=== PATIENT | female | born 1940 | race Caucasian/White ===

== ENCOUNTER 2019-05-19 13:08 | Inpatient (IN) | payer MEDICARE, BC ==
[~2019-05-19] VITALS: Ht 162.6 cm; Wt 87.0 kg
[~2019-05-19 13:08] MED LIST: ASPI-1009 PO; CARV-50 PO; ESOM40CA PO; FENO135C3 PO; LEVO125T PO; LOSA25TA41 PO; METF500T PO; METH500T6 PO; ROPI1TAB17 PO; ROPI2TAB4 PO; TRAM50TA2 PO
[2019-05-19 13:47] LABS: BASOPHILS % (AUTO) 0.6 % (0-1); EOSINOPHILS # (AUTO) 0.1 X10'3 (0-0.9); EOSINOPHILS % (AUTO) 1.6 % (0-6); HEMATOCRIT 31.6 % (35.0-45.0); HEMOGLOBIN 10.3 g/dl (12.0-16.0); LYMPHOCYTES # (AUTO) 1.5 X10'3 (1.1-4.8); MEAN CORPUSCULAR HEMOGLOBIN 27.9 PG (27.0-31.0); MEAN CORPUSCULAR HGB CONC 32.7 g/dL (33.0-36.5); MEAN CORPUSCULAR VOLUME 85.6 FL (78-98); MEAN PLATELET VOLUME 8.1 FL (7.4-10.4); MONOCYTES # (AUTO) 0.4 X10'3 (0-0.9); MONOCYTES % (AUTO) 6.6 % (2-12); NEUTROPHILS # (AUTO) 4.5 X10'3 (1.8-7.7); NEUTROPHILS % (AUTO) 68.2 % (42-75); PLATELET COUNT 296 X10'3 (140-440); RED BLOOD COUNT 3.69 X10'6 (4.20-5.60); WHITE BLOOD COUNT 6.5 X10'3 (4.5-11.0)
[2019-05-19] MEDS ORDERED: dexamethasone sod phosphate 10mg/ml inj IV STA (13:54)
[2019-05-19] MEDS ORDERED: ipratropium/albuterol 3ml nebule NEB ONE (13:55)
[2019-05-19 14:03] LABS: ALANINE AMINOTRANSFERASE 22 U/L (12-78); ALBUMIN 3.5 G/DL (3.4-5.0); ALKALINE PHOSPHATASE 36 IU/L (46-116); ANION GAP 8 (8-16); ASPARTATE AMINO TRANSFERASE 18 U/L (10-37); BILIRUBIN,TOTAL 0.7 MG/DL (0.1-1.0); BLOOD UREA NITROGEN 20 MG/DL (7-18); BUN/CREATININE RATIO 19.8 (6.6-38.0); CALCIUM 9.3 MG/DL (8.5-10.1); CHLORIDE 103 MMOL/L (99-107); CREATININE 1.01 MG/DL (0.40-0.90); GLUCOSE 197 MG/DL (70-104); POTASSIUM 3.8 MMOL/L (3.5-5.1); SODIUM 138 MMOL/L (135-145); TOTAL CARBON DIOXIDE 26.6 MMOL/L (24-32); TOTAL PROTEIN 7.1 G/DL (6.4-8.2); eGFR 53 ML/MIN
[2019-05-19 14:10] LABS: PARTIAL THROMBOPLASTIN TIME 31 SECONDS (22-32)
[2019-05-19] MEDS ORDERED: SPIR25TA5 PO (14:50)
[2019-05-19] MEDS ORDERED: MULT1TAB74 PO (14:50)
[2019-05-19] MEDS ORDERED: CHOL200026 PO (14:50)
[2019-05-19] MEDS ORDERED: BLOO1STR (14:50)
[2019-05-19] MEDS ORDERED: POTA20TA19 PO (14:50)
[2019-05-19] MEDS ORDERED: CINN500C15 PO (14:50)
[2019-05-19] MEDS ORDERED: ASCO500C15 PO (14:50)
[2019-05-19] MEDS ORDERED: OMEG-145 PO (14:50)
[2019-05-19] MEDS ORDERED: INSU100V9 SQ (14:50)
[2019-05-19] MEDS ORDERED: MIRA50TA PO (14:50)
[2019-05-19] MEDS ORDERED: LINA5TAB4 PO (14:50)
[2019-05-19] MEDS ORDERED: CRAN200C PO (14:50)
[2019-05-19] MEDS ORDERED: APIX5TAB3 PO (14:50)
[2019-05-19] MEDS ORDERED: acetaminophen 325mg tablet PO PRN (15:40)
[2019-05-19] MEDS ORDERED: magnesium hydroxide 30ml (MOM) UD suspension PO PRN (15:40)
[2019-05-19] MEDS ORDERED: dextrose ORAL solution 15 GM/59 ML bottle PO PRN ×2 (15:40)
[2019-05-19] MEDS ORDERED: glucagon, human recombinant 1mg kit SUBCUT PRN (15:40)
[2019-05-19] MEDS ORDERED: dextrose 50%-water 50ml dispensing syringe IV PRN ×2 (15:40)
[2019-05-19] MEDS ORDERED: MESSAGE TO PHARMACY PO ONE (15:40)
[2019-05-19] MEDS ORDERED: mag hydrox/Alum hydrox/simeth 30ml oral suspension PO PRN (15:40)
[2019-05-19] MEDS ORDERED: ondansetron/PF 4mg/2ml inj IV PRN (15:40)
[2019-05-19] MEDS ORDERED: morphine 2 MG/ML inj. syringe IV PRN ×2 (15:40)
[2019-05-19] MEDS ORDERED: HYDROcodone/acetaminophen 5mg/325mg tablet PO PRN (15:40)
[2019-05-19 16:01] LABS: HEMOGLOBIN A1C 8.4 % (4.5-6.2)
[2019-05-19] MEDS: furosemide 20 MG/2 ML vial IV SCH ×2 (16:34→21:55)
--- NOTE | 2019-05-19 20:10 | NUR ---
REPORT REC'D FROM MALIK IGLESIAS. IN ED. PT ARRIVED TO FLOOR AND PIVOT TRANSFERRED SELF. INCONTINENT CHANGED AND SET UP WITH [employer] EX[employer]HE[employer]. ALL MEDS ADMINISTERED ORDERED. BG CHECK 179 AT HS. MEAL PROVIDED. PT IS ON O2 2L/NC SAT 97%. ADMIT RECORDED AND SKIN CHECK PERFORMED.
[2019-05-19 20:20] VITALS: BP_SYST 179
[2019-05-19] MEDS: ROPINIRole 1mg tablet PO SCH (21:00)
[2019-05-19] MEDS: insulin glargine (Lantus) pen - multi-dose SQ SCH (21:00)
[2019-05-19] MEDS: mirabegron 25mg ER tablet PO SCH (21:50)
[2019-05-19] MEDS: OMEGA-3/DHA/EPA/FISH OIL 1 EACH CAPSULE.DR PO SCH (21:50)
[2019-05-19] MEDS: spironolactone 25 MG tablet PO SCH (21:51)
[2019-05-19] MEDS: traMADol 50MG tablet PO SCH (21:54)
[2019-05-19] MEDS: apixaban 5mg tablet PO SCH (21:54)
[2019-05-19] MEDS: carVEDilol 12.5mg tablet PO SCH (21:55)
[2019-05-19 22:00] VITALS: BP 168/78
[2019-05-19] MEDS ORDERED: ROPINIRole 0.25mg tablet PO ONE (23:10)
--- NOTE | 2019-05-19 23:52 | NUR ---
DAUGHTER BRYON REEVES CALLED TO CHECK ON MOTHER. RN WAS GIVEN PERMISSION TO DISCUSS CASE. PT IS ADMITTED FOR ACUTE DECOMPENSATED CHF, REC'ING TESSAWOLF, WILL OBTAIN ECHO IN AM, IS BEING MONITORED FOR HYPER/HYPOGLYCEMIA. ON 2.5%O2/NC. SHE WILL CALL IN THE MORNING AND GET UPDATE. DAYNA FROM [facility] ALSO CALLED TO REC' UPDATE AND ADMITTING DX.
[2019-05-20 02:00] VITALS: BP 142/70
[2019-05-20] MEDS: traMADol 50MG tablet PO SCH ×4 (03:03→20:37)
[2019-05-20 06:00] VITALS: BP 138/73
--- NOTE | 2019-05-20 06:00 | NUR ---
Patient in room MED 309. I have received report from MALIK Vernon and had the opportunity to ask questions and assume patient care.
[2019-05-20 06:13] LABS: ALBUMIN 3.3 G/DL (3.4-5.0); ANION GAP 8 (8-16); BLOOD UREA NITROGEN 17 MG/DL (7-18); BUN/CREATININE RATIO 18.1 (6.6-38.0); CALCIUM 8.9 MG/DL (8.5-10.1); CHLORIDE 100 MMOL/L (99-107); CREATININE 0.94 MG/DL (0.40-0.90); GLUCOSE 165 MG/DL (70-104); SODIUM 140 MMOL/L (135-145); TOTAL CARBON DIOXIDE 32.3 MMOL/L (24-32); eGFR 58 ML/MIN
[2019-05-20 06:16] LABS: BASOPHILS % (AUTO) 0.1 % (0-1); EOSINOPHILS % (AUTO) 0.1 % (0-6); HEMATOCRIT 30.9 % (35.0-45.0); HEMOGLOBIN 10.4 g/dl (12.0-16.0); LYMPHOCYTES # (AUTO) 1.2 X10'3 (1.1-4.8); LYMPHOCYTES % (AUTO) 17.2 % (21-51); MEAN CORPUSCULAR HEMOGLOBIN 28.5 PG (27.0-31.0); MEAN CORPUSCULAR HGB CONC 33.6 g/dL (33.0-36.5); MEAN CORPUSCULAR VOLUME 84.7 FL (78-98); MEAN PLATELET VOLUME 7.9 FL (7.4-10.4); MONOCYTES # (AUTO) 0.4 X10'3 (0-0.9); MONOCYTES % (AUTO) 6.2 % (2-12); NEUTROPHILS # (AUTO) 5.4 X10'3 (1.8-7.7); NEUTROPHILS % (AUTO) 76.4 % (42-75); PLATELET COUNT 304 X10'3 (140-440); RED BLOOD COUNT 3.65 X10'6 (4.20-5.60); RED CELL DISTRIBUTION WIDTH 17.3 % (11.5-14.5); WHITE BLOOD COUNT 7.1 X10'3 (4.5-11.0)
[2019-05-20 06:27] LABS: POTASSIUM 2.9 MMOL/L (3.5-5.1)
--- NOTE | 2019-05-20 06:34 | NUR ---
REPORT GIVEN TO MALIK ANDERSON.
--- NOTE | 2019-05-20 06:43 | NUR ---
PAGER ID: [phone] MESSAGE: RM [id number] Lazaro Mayfield Potassium 2.9 this AM. Will replace per protocol. Zeynep ACCE [id number]
[2019-05-20] MEDS: pantoprazole 40mg Tablet.DR PO SCH (07:30)
[2019-05-20] MEDS ORDERED: non-formulary drug (Cinnamon Bark (Cinnamon) 2 CAP) PO SCH (08:00)
[2019-05-20] MEDS ORDERED: potassium Cl 20 mEq SR tablet PO SCH (08:00)
[2019-05-20] MEDS ORDERED: CRANBERRY EXTRACT PO SCH (08:00)
[2019-05-20] MEDS: multivitamins, therapeutics tablet PO SCH (08:57)
[2019-05-20] MEDS: apixaban 5mg tablet PO SCH (08:57)
[2019-05-20] MEDS: carVEDilol 12.5mg tablet PO SCH ×2 (08:58→20:39)
[2019-05-20] MEDS: fenofibrate 145mg tablet PO SCH (08:58)
[2019-05-20] MEDS: levoTHYROXINE 125mcg tablet PO SCH (08:58)
[2019-05-20] MEDS: aspirin 81mg tablet.DR PO SCH (08:58)
[2019-05-20] MEDS: vitamin D (cholecalciferol) 1,000 unit tablet PO SCH (08:59)
[2019-05-20] MEDS: furosemide 20 MG/2 ML vial IV SCH ×2 (08:59→20:44)
[2019-05-20] MEDS: OMEGA-3/DHA/EPA/FISH OIL 1 EACH CAPSULE.DR PO SCH ×2 (08:59→20:34)
[2019-05-20] MEDS: spironolactone 25 MG tablet PO SCH ×2 (08:59→20:37)
[2019-05-20] MEDS: losartan 25mg tablet PO SCH (08:59)
[2019-05-20] MEDS: ascorbic acid 500mg tablet PO SCH (08:59)
[2019-05-20] MEDS: enoxaparin 40mg/0.4ml syringe SUBCUT SCH (09:00)
--- NOTE | 2019-05-20 09:17 | NUR ---
PAGER ID: [phone] MESSAGE: RM 309 Lazaro Mayfield Please call Zeynep on ACCE regarding potassium orders. ext [phone]
[2019-05-20] MEDS ORDERED: magnesium 2GM in 50ml NS 50 ML IV PRN (09:30)
[2019-05-20] MEDS ORDERED: potassium CL 10mEq/100ml bag 100 ML IV PRN (09:30)
[2019-05-20] MEDS: K and/or MAG REPLACEMENT MC SCH ×2 (09:30→20:00)
[2019-05-20] MEDS ORDERED: potassium Cl 20 mEq SR tablet PO PRN (09:30)
[2019-05-20] MEDS ORDERED: magnesium Cl slow-release 64mg tablet PO PRN (09:30)
[2019-05-20] MEDS ORDERED: magnesium 4gm in 100ml NS 100 ML IV PRN (09:30)
[2019-05-20 10:04] LABS: MAGNESIUM 1.2 MG/DL (1.5-2.4)
[2019-05-20] MEDS: potassium Cl 20 mEq SR tablet PO PRN ×3 (10:25→17:42)
[2019-05-20 11:00] VITALS: BP 129/68
--- NOTE | 2019-05-20 14:53 | NUR ---
DM Consult: Pt hx T2DM A1C 8.4. Pt seen by RD for written/verbal DM ed w/ RD contact information provided. Pt reports lives at [place] with SO and sometimes meals are not DM-friendly. Pt also reports she and SO are both more conscious of DM and have started on medications w/ meals as well as checking GLU prior to meals. RD encouraged pt to contact RD if further questions/concerns. Addendum: 05/20/19 at [address] Amended: Links added.
[2019-05-20 15:00] VITALS: BP 130/70
[2019-05-20 18:00] VITALS: BP 132/85
--- NOTE | 2019-05-20 18:00 | NUR ---
Patient in room MED 309. I have received report from MALIK Adhikari and had the opportunity to ask questions and assume patient care.
[2019-05-20] MEDS: insulin Lispro (HumaLOG) vial - multi-dose SQ SCH (18:10)
--- NOTE | 2019-05-20 18:27 | NUR ---
Problems reprioritized. Patient report given, questions answered & plan of care reviewed with MALIK Marie.
--- NOTE | 2019-05-20 19:45 | NUR ---
Dr. Rider called to inform me of the plan to change the patients pace maker during this stay. orders were given to DC patients Eliquis and start patient on 40mg of Lovenox.
[2019-05-20] MEDS ORDERED: enoxaparin 40mg/0.4ml syringe SUBCUT SCH (20:00)
[2019-05-20] MEDS: mirabegron 25mg ER tablet PO SCH (20:39)
[2019-05-20] MEDS: ROPINIRole 1mg tablet PO SCH (20:40)
--- NOTE | 2019-05-20 20:45 | NUR ---
Dr. Rider at patients bedside to talk to her about changing her pacemaker. Orders were given to stop all anticoags. Dr will be back in AM to discuss date and time of procedure.
[2019-05-20] MEDS: insulin glargine (Lantus) pen - multi-dose SQ SCH (20:58)
[2019-05-20 22:00] VITALS: BP 106/67
[2019-05-21] VITALS (12 sets, daily range): BP systolic 118–175; BP diastolic 58–84
[2019-05-21] MEDS: traMADol 50MG tablet PO SCH ×4 (03:11→21:00)
[2019-05-21 03:52] LABS: BASOPHILS # (AUTO) 0.1 X10'3 (0-0.2); EOSINOPHILS # (AUTO) 0.4 X10'3 (0-0.9); EOSINOPHILS % (AUTO) 5.2 % (0-6); HEMATOCRIT 31.5 % (35.0-45.0); HEMOGLOBIN 10.5 g/dl (12.0-16.0); LYMPHOCYTES % (AUTO) 39.3 % (21-51); MEAN CORPUSCULAR HEMOGLOBIN 28.4 PG (27.0-31.0); MEAN CORPUSCULAR HGB CONC 33.3 g/dL (33.0-36.5); MEAN CORPUSCULAR VOLUME 85.2 FL (78-98); MEAN PLATELET VOLUME 8.2 FL (7.4-10.4); MONOCYTES # (AUTO) 0.6 X10'3 (0-0.9); MONOCYTES % (AUTO) 8.1 % (2-12); NEUTROPHILS # (AUTO) 3.5 X10'3 (1.8-7.7); NEUTROPHILS % (AUTO) 46.4 % (42-75); PLATELET COUNT 317 X10'3 (140-440); RED CELL DISTRIBUTION WIDTH 17.6 % (11.5-14.5); WHITE BLOOD COUNT 7.5 X10'3 (4.5-11.0)
[2019-05-21 04:02] LABS: ALBUMIN 3.3 G/DL (3.4-5.0); ANION GAP 5 (8-16); BLOOD UREA NITROGEN 23 MG/DL (7-18); BUN/CREATININE RATIO 21.5 (6.6-38.0); CALCIUM 9.4 MG/DL (8.5-10.1); CHLORIDE 99 MMOL/L (99-107); CREATININE 1.07 MG/DL (0.40-0.90); GLUCOSE 131 MG/DL (70-104); MAGNESIUM 1.5 MG/DL (1.5-2.4); POTASSIUM 4.5 MMOL/L (3.5-5.1); SODIUM 136 MMOL/L (135-145); TOTAL CARBON DIOXIDE 32.5 MMOL/L (24-32); eGFR 50 ML/MIN
--- NOTE | 2019-05-21 06:00 | NUR ---
Problems reprioritized. Patient report given, questions answered & plan of care reviewed with MALIK Adhikari.
--- NOTE | 2019-05-21 06:05 | NUR ---
Patient in room MED 309. I have received report from MALIK Marie and had the opportunity to ask questions and assume patient care.
[2019-05-21] MEDS: enoxaparin 40mg/0.4ml syringe SUBCUT SCH (06:52)
[2019-05-21] MEDS: pantoprazole 40mg Tablet.DR PO SCH (07:58)
[2019-05-21] MEDS: levoTHYROXINE 125mcg tablet PO SCH (07:58)
[2019-05-21] MEDS: OMEGA-3/DHA/EPA/FISH OIL 1 EACH CAPSULE.DR PO SCH ×2 (07:58→20:59)
[2019-05-21] MEDS: ascorbic acid 500mg tablet PO SCH (07:58)
[2019-05-21] MEDS: furosemide 20 MG/2 ML vial IV SCH ×2 (07:58→21:00)
[2019-05-21] MEDS: multivitamins, therapeutics tablet PO SCH (07:58)
[2019-05-21] MEDS: carVEDilol 12.5mg tablet PO SCH ×2 (07:58→21:00)
[2019-05-21] MEDS: losartan 25mg tablet PO SCH (07:59)
[2019-05-21] MEDS: fenofibrate 145mg tablet PO SCH (07:59)
[2019-05-21] MEDS: K and/or MAG REPLACEMENT MC SCH ×2 (07:59→20:00)
[2019-05-21] MEDS: vitamin D (cholecalciferol) 1,000 unit tablet PO SCH (07:59)
[2019-05-21] MEDS: spironolactone 25 MG tablet PO SCH ×2 (07:59→20:59)
[2019-05-21] MEDS: insulin Lispro (HumaLOG) vial - multi-dose SQ SCH (08:10)
[2019-05-21] MEDS: aspirin 81mg tablet.DR PO SCH (08:19)
[2019-05-21] MEDS ORDERED: fentaNYL/PF 50MCG/1 ML 2ML syringe ONE (11:41)
[2019-05-21] MEDS ORDERED: ceFAZolin 1000mg inj ONE (11:41)
[2019-05-21] MEDS ORDERED: LIDOcaine 1% W/epiNEPHrine 1:100,000 20ml vial ONE ×2 (11:41→13:08)
[2019-05-21] MEDS ORDERED: midazolam 2 mg/2 ml injection ONE ×2 (11:41→13:11)
--- NOTE | 2019-05-21 11:45 | NUR ---
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
[2019-05-21] MEDS ORDERED: HYDROcodone/acetaminophen 5mg/325mg tablet PO PRN (14:30)
[2019-05-21] MEDS ORDERED: HYDROcodone/acetaminophen 10/325mg tab PO PRN (14:30)
[2019-05-21] MEDS: normal saline 1000ml 1,000 ML IV SCH (14:30)
--- NOTE | 2019-05-21 14:30 | NUR ---
Patient back from laborer prestressed concrete.
[2019-05-21] MEDS ORDERED: vancomycin/NS 1 GM ADD-VANTAGE 250 ML X 1 DOSE IV ONE (16:00)
--- NOTE | 2019-05-21 18:00 | NUR ---
Patient in room MED 309. I have received report from MALIK Adhikari and had the opportunity to ask questions and assume patient care.
--- NOTE | 2019-05-21 18:10 | NUR ---
Problems reprioritized. Patient report given, questions answered & plan of care reviewed with MALIK Marie.
[2019-05-21] MEDS: ROPINIRole 1mg tablet PO SCH (21:00)
[2019-05-21] MEDS: mirabegron 25mg ER tablet PO SCH (21:00)
[2019-05-21] MEDS: insulin glargine (Lantus) pen - multi-dose SQ SCH (21:20)
[2019-05-22] MEDS: normal saline 1000ml 1,000 ML IV SCH (00:30)
[2019-05-22 02:00] VITALS: BP 126/57
[2019-05-22] MEDS: traMADol 50MG tablet PO SCH ×3 (03:06→14:32)
[2019-05-22 06:36] LABS: BASOPHILS % (AUTO) 0.5 % (0-1); EOSINOPHILS # (AUTO) 0.4 X10'3 (0-0.9); EOSINOPHILS % (AUTO) 5.9 % (0-6); HEMATOCRIT 34.1 % (35.0-45.0); HEMOGLOBIN 11.2 g/dl (12.0-16.0); LYMPHOCYTES # (AUTO) 1.8 X10'3 (1.1-4.8); MEAN CORPUSCULAR HEMOGLOBIN 27.9 PG (27.0-31.0); MEAN CORPUSCULAR HGB CONC 32.8 g/dL (33.0-36.5); MEAN CORPUSCULAR VOLUME 85.1 FL (78-98); MEAN PLATELET VOLUME 7.7 FL (7.4-10.4); MONOCYTES # (AUTO) 0.7 X10'3 (0-0.9); MONOCYTES % (AUTO) 9.9 % (2-12); NEUTROPHILS # (AUTO) 4.1 X10'3 (1.8-7.7); NEUTROPHILS % (AUTO) 58.7 % (42-75); PLATELET COUNT 328 X10'3 (140-440); RED BLOOD COUNT 4.01 X10'6 (4.20-5.60); RED CELL DISTRIBUTION WIDTH 17.5 % (11.5-14.5)
--- NOTE | 2019-05-22 06:43 | NUR ---
Problems reprioritized. Patient report given, questions answered & plan of care reviewed with HeidiRN.
[2019-05-22 06:57] LABS: ALBUMIN 3.3 G/DL (3.4-5.0); ANION GAP 6 (8-16); BLOOD UREA NITROGEN 21 MG/DL (7-18); BUN/CREATININE RATIO 21.2 (6.6-38.0); CALCIUM 8.9 MG/DL (8.5-10.1); CHLORIDE 99 MMOL/L (99-107); CREATININE 0.99 MG/DL (0.40-0.90); GLUCOSE 133 MG/DL (70-104); MAGNESIUM 1.6 MG/DL (1.5-2.4); POTASSIUM 3.5 MMOL/L (3.5-5.1); SODIUM 138 MMOL/L (135-145); TOTAL CARBON DIOXIDE 33.1 MMOL/L (24-32); eGFR 55 ML/MIN
[2019-05-22 07:10] VITALS: BP 136/67
[2019-05-22 07:30] VITALS: BP 92/48
[2019-05-22] MEDS: carVEDilol 12.5mg tablet PO SCH ×2 (08:00→14:10)
[2019-05-22] MEDS: losartan 25mg tablet PO SCH ×2 (08:00→14:11)
[2019-05-22] MEDS: furosemide 20 MG/2 ML vial IV SCH (08:00)
[2019-05-22] MEDS: K and/or MAG REPLACEMENT MC SCH (08:00)
[2019-05-22] MEDS: spironolactone 25 MG tablet PO SCH (08:00)
[2019-05-22] MEDS: insulin Lispro (HumaLOG) vial - multi-dose SQ SCH ×2 (09:50→14:26)
[2019-05-22] MEDS: aspirin 81mg tablet.DR PO SCH (09:53)
[2019-05-22] MEDS: pantoprazole 40mg Tablet.DR PO SCH (09:53)
[2019-05-22] MEDS: OMEGA-3/DHA/EPA/FISH OIL 1 EACH CAPSULE.DR PO SCH (09:53)
[2019-05-22] MEDS: multivitamins, therapeutics tablet PO SCH (09:54)
[2019-05-22] MEDS: levoTHYROXINE 125mcg tablet PO SCH (09:54)
[2019-05-22] MEDS: cephalexin 500mg capsule PO SCH ×2 (09:54→14:28)
[2019-05-22] MEDS: vitamin D (cholecalciferol) 1,000 unit tablet PO SCH (09:55)
[2019-05-22] MEDS: fenofibrate 145mg tablet PO SCH (09:55)
[2019-05-22] MEDS: ascorbic acid 500mg tablet PO SCH (09:55)
[2019-05-22] MEDS ORDERED: CEPH500C5 PO (10:19)
[2019-05-22] MEDS ORDERED: FURO-150 PO (10:19)
[2019-05-22 11:00] VITALS: BP 167/82
[2019-05-22] MEDS ORDERED: lactobacillus rhamnosus 10,000 MMU CELLS/CAPSULE PO SCH (20:00)
[2019-05-23] MEDS ORDERED: apixaban 5mg tablet PO SCH (08:00)
== END 2019-05-22 16:15 | disposition home health service (06) | DRG 258 ==
LOC: ER 13:08 → ED HOLD 15:37 → MED 3N 20:22 → CMPBEDREQ 05-20 20:05
PROVIDERS: ADMIT Internal Medicine; ATTEND Internal Medicine
PROC: 0JPT0PZ Removal of Cardiac Rhythm Related Device from Trunk Subcutaneous Tissue and Fascia, Open Approach (ICD-10-PCS; principal; 2019-05-21)
PROC: 0JH606Z Insertion of Pacemaker, Dual Chamber into Chest Subcutaneous Tissue and Fascia, Open Approach (ICD-10-PCS; 2019-05-21)
DX: I13.0 Hypertensive heart and chronic kidney disease with heart failure and stage 1 through stage 4 chronic kidney disease, or unspecified chronic kidney disease (principal); I50.43 Acute on chronic combined systolic (congestive) and diastolic (congestive) heart failure; J44.1 Chronic obstructive pulmonary disease with (acute) exacerbation; D63.8 Anemia in other chronic diseases classified elsewhere; E03.9 Hypothyroidism, unspecified; E78.5 Hyperlipidemia, unspecified; E87.6 Hypokalemia; I49.5 Sick sinus syndrome; K21.9 Gastro-esophageal reflux disease without esophagitis; M48.061 Spinal stenosis, lumbar region without neurogenic claudication; G47.33 Obstructive sleep apnea (adult) (pediatric); I25.10 Atherosclerotic heart disease of native coronary artery without angina pectoris; F41.9 Anxiety disorder, unspecified; G25.81 Restless legs syndrome; M19.90 Unspecified osteoarthritis, unspecified site; F32.9 Major depressive disorder, single episode, unspecified; I48.0 Paroxysmal atrial fibrillation; E11.22 Type 2 diabetes mellitus with diabetic chronic kidney disease; N18.3 Chronic kidney disease, stage 3 (moderate); E66.9 Obesity, unspecified; N28.9 Disorder of kidney and ureter, unspecified; Z79.01 Long term (current) use of anticoagulants; Z79.4 Long term (current) use of insulin; Z79.82 Long term (current) use of aspirin; Z95.0 Presence of cardiac pacemaker; Z79.84 Long term (current) use of oral hypoglycemic drugs; Z79.899 Other long term (current) drug therapy; Z88.5 Allergy status to narcotic agent; Z88.8 Allergy status to other drugs, medicaments and biological substances; Z68.32 Body mass index [BMI] 32.0-32.9, adult
CPT/HCPCS: 33228; 36415; 71045; 80048; 80053; 82948; 83036; 83605; 83735; 83880; 84145; 84443; 84484; 85025; 85610; 85730; 87040; 87081; 93005; 93306; 94640; 94667; 94760; 96374; 97116; 97162; 97530; 99152; 99153; 99285; A4620; A6258; A6449; GO378; J0690; J1100; J1650; J1815; J1940; J2250; J3010; J3370; J7030

== ENCOUNTER 2023-11-23 13:28 | Emergency (ER) | payer MEDICARE, BC ==
[~2023-11-23] VITALS: Ht 160 cm; Wt 80.0 kg
[~2023-11-23 13:28] MED LIST changes: +APIX5TAB3 PO; +ASCO500C18 PO; -ASPI-1009 PO; +BLOO1STR; +BUME0.5T6 PO; +CHOL200026 PO; +CINN500C15 PO; +CRAN200C PO; -FENO135C3 PO; +FLUO10CA28 PO; +GLIM4TAB7 PO; +INSU100V9 SQ; +LINA5TAB4 PO; -METF500T PO; -METH500T6 PO; +MIRA50TA PO; +MULT-620 PO; +OMEG-145 PO; +POTA20PA40 PO; -ROPI2TAB4 PO; +SPIR25TA5 PO
[2023-11-23 13:47] VITALS: TEMP 98
[2023-11-23 14:32] LABS: BASOPHILS % (AUTO) 0.4 % (0-1); EOSINOPHILS # (AUTO) 0.3 X10'3 (0-0.9); EOSINOPHILS % (AUTO) 3.6 % (0-6); HEMATOCRIT 36.7 % (35.0-45.0); HEMOGLOBIN 11.8 g/dl (12.0-16.0); LYMPHOCYTES # (AUTO) 2.1 X10'3 (1.1-4.8); LYMPHOCYTES % (AUTO) 29.3 % (21-51); MEAN CORPUSCULAR HEMOGLOBIN 27.4 PG (27.0-31.0); MEAN CORPUSCULAR HGB CONC 32.3 g/dL (33.0-36.5); MEAN CORPUSCULAR VOLUME 84.9 FL (78-98); MEAN PLATELET VOLUME 8.1 FL (7.4-10.4); MONOCYTES # (AUTO) 0.6 X10'3 (0-0.9); MONOCYTES % (AUTO) 8.7 % (2-12); NEUTROPHILS # (AUTO) 4.2 X10'3 (1.8-7.7); PLATELET COUNT 229 X10'3 (140-440); RED BLOOD COUNT 4.32 X10'6 (4.20-5.60); RED CELL DISTRIBUTION WIDTH 16.7 % (11.5-14.5); WHITE BLOOD COUNT 7.2 X10'3 (4.5-11.0)
[2023-11-23 14:42] LABS: ANION GAP 6 (8-16); BLOOD UREA NITROGEN 16 MG/DL (7-18); CALCIUM 8.6 MG/DL (8.5-10.1); CHLORIDE 102 MMOL/L (99-107); CREATININE 0.89 MG/DL (0.40-0.90); GLUCOSE 137 MG/DL (70-104); POTASSIUM 3.8 MMOL/L (3.5-5.1); SODIUM 137 MMOL/L (135-145); TOTAL CARBON DIOXIDE 28.6 MMOL/L (24-32); eCRCL 42 ML/MIN; eGFR 61 ML/MIN
[2023-11-23 15:30] LABS: BILIRUBIN,URINE NEGATIVE (Neg); CLARITY,URINE CLEAR (Clear); COLOR,URINE STRAW (Yellow); GLUCOSE, URINE NEGATIVE (Neg); KETONES,URINE NEGATIVE (Neg); LEUKOCYTE ESTERASE ,URINE NEGATIVE (Neg); NITRITES, URINE NEGATIVE (Neg); OCCULT BLOOD,URINE TRACE-INTACT (Neg); PH,URINE 6.5 (4.8-8.0); PROTEIN,URINE NEGATIVE (Neg); UROBILINOGEN,URINE 0.2 E.U/dL (0.2-1.0)
[2023-11-23 15:32] LABS: UA COLLECTION TYPE CLN CATCH MIDSTREAM
[2023-11-23 15:36] LABS: RBC,URINE 0-2 /HPF (0-2); SQUAMOUS EPITHELIAL CELL,UR FEW /LPF (FEW)
[2023-11-23 15:37] LABS: BACTERIA,URINE NONE SEEN /HPF (Neg); WBC,URINE 0-4 /HPF (0-4)
[2023-11-23] MEDS: acetaminophen 325mg tablet PO ONE (15:49)
[2023-11-23 16:58] VITALS: BP 129/56; PULSE 60; RESP 16; O2SAT 99
== END 2023-11-23 19:01 | disposition home or self-care (01) ==
LOC: ER 13:29
DX: B34.9 Viral infection, unspecified (principal); R53.81 Other malaise; I25.10 Atherosclerotic heart disease of native coronary artery without angina pectoris; I10 Essential (primary) hypertension; E11.9 Type 2 diabetes mellitus without complications; E03.9 Hypothyroidism, unspecified; S09.90XA Unspecified injury of head, initial encounter; Z95.0 Presence of cardiac pacemaker; Z60.2 Problems related to living alone; Z88.8 Allergy status to other drugs, medicaments and biological substances; Z79.4 Long term (current) use of insulin; Z79.899 Other long term (current) drug therapy
CPT/HCPCS: 36415; 70450; 71045; 80048; 81001; 85025; 99284

== ENCOUNTER 2024-02-21 09:17 | Outpatient (CLI) | payer MEDICARE, BC ==
[2024-02-21] MEDS ORDERED: GADOTERATE MEGLUMINE 7.5 MMOL/15 ML VIAL IV ONE (18:50)
== END 2024-02-21 23:59 | disposition home or self-care (01) ==
LOC: MRI 09:17
PROVIDERS: ATTEND Family Medicine
DX: R41.82 Altered mental status, unspecified (principal); G31.9 Degenerative disease of nervous system, unspecified; R29.6 Repeated falls
CPT/HCPCS: 70553; A9575